=== PATIENT | male | born 1990 | race Caucasian/White ===

== ENCOUNTER 2018-09-18 12:15 | Emergency (ER) | payer MEDICAID ==
[~2018-09-18] VITALS: Ht 162.6 cm; Wt 60.0 kg
[2018-09-18] MEDS ORDERED: ZIPRASIDONE 20 MG INJ IM ONE ×2 (12:18→12:30)
[2018-09-18] MEDS ORDERED: PLEASE ENTER ALLERGIES MC SCH (12:30)
[2018-09-18] MEDS ORDERED: PLEASE ENTER HEIGHT AND WEIGHT MC SCH (12:30)
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
--- NOTE | 2018-09-18 12:48 | NUR ---
PT CALM NOW, STATES HE IS OUT OF HIS MEDS FOR A FEW DAYS AND HAD AN ARGUEMENT TODAY WITH WITH ROOMMATE THAT SET HIM OFF.
[2018-09-18] MEDS ORDERED: DIVA125T2 PO (12:50)
[2018-09-18] MEDS ORDERED: HYDR25CA PO (12:50)
--- NOTE | 2018-09-18 12:59 | NUR ---
MOVED TO 2 PT RESTRAINTS
[2018-09-18 13:05] LABS: ALBUMIN 4.3 g/dL (3.4-5.0); ANION GAP 14 mmol/L (5-15); BASOPHILS # (AUTO) 0.02 x10^3/uL (0-0.1); BASOPHILS % (AUTO) 0 % (0-1); CALCIUM 9.1 mg/dL (8.5-10.1); CHLORIDE 108 mmol/L (98-107); EOSINOPHILS # (AUTO) 0.08 x10^3/uL (0-0.4); EOSINOPHILS % (AUTO) 1 % (1-7); LYMPHOCYTES # (AUTO) 1.47 x10^3/uL (1-3.4); LYMPHOCYTES % (AUTO) 18 % (22-44); MD NO; MEAN CORPUSCULAR HEMOGLOBIN 28.7 pg (27.5-34.5); MEAN CORPUSCULAR HGB CONC 32.3 g/dL (33.2-36.2); MEAN CORPUSCULAR VOLUME 88.6 fL (81-97); MEAN PLATELET VOLUME 8.5 fL (7.4-10.4); MONOCYTES # (AUTO) 0.43 x10^3/uL (0.2-0.8); MONOCYTES % (AUTO) 5 % (2-9); NEUTROPHILS # (AUTO) 6.25 x10^3/uL (1.8-6.8); NEUTROPHILS % (AUTO) 76 % (42-75); PLATELET COUNT 283 x10^3/uL (130-400)
[2018-09-18 13:06] LABS: CREATININE 1.07 mg/dL (0.7-1.3)
[2018-09-18 13:09] LABS: ACETAMINOPHEN < 2 mcg/mL (10-30); SALICYLATE LEVEL < 1.7 mg/dL (2.8-20.0)
--- NOTE | 2018-09-18 13:27 | NUR ---
ALL RESTRAINTS RELEASED AT 1315 PT SLEEPING
[2018-09-18 13:28] VITALS: BP 98/66
--- NOTE | 2018-09-18 13:30 | NUR ---
REPORT FROM JUVENTINO HERRERA, PT SLEEPING IN [facility] WITH SITTER AT DOORWAY. URINAL PROVIDED AND SITTER INFORMED OF NEED FOR UDS.
--- NOTE | 2018-09-18 14:32 | NUR ---
PT SLEEPING IN [facility], EQUAL CHEST RISE AND FALL. SITTER AT DOORWAY.
--- NOTE | 2018-09-18 15:28 | NUR ---
PT SLEEPING IN [facility], EQUAL CHEST RISE AND FALL. SITTER AT DOORWAY.
[2018-09-18] MEDS ORDERED: LORazepam 1MG TABLET PO PRN (15:30)
[2018-09-18] MEDS ORDERED: ONDANSETRON ODT 4 MG PO PRN (15:30)
[2018-09-18] MEDS ORDERED: NICOTINE 21 MG/24 HR PATCH.TD24 TD SCH (15:30)
[2018-09-18] MEDS ORDERED: BENZTROPINE 1 MG TABLET PO PRN (15:30)
[2018-09-18] MEDS ORDERED: ACETAMINOPHEN 325 MG TABLET PO PRN (15:30)
[2018-09-18] MEDS ORDERED: ZIPRASIDONE 20MG CAPSULE PO PRN (15:30)
[2018-09-18] MEDS ORDERED: LORazepam 2 MG/ML, 1ML IM PRN (15:30)
[2018-09-18] MEDS ORDERED: ZIPRASIDONE 20 MG INJ IM PRN (15:30)
[2018-09-18 16:23] LABS: AMPHETAMINE SCREEN, URINE Negative (Negative); BARBITURATE SCREEN, URINE Negative (Negative); BENZODIAZEPINE SCREEN, URINE Negative (Negative); CANNABINOID SCREEN, URINE Positive (Negative); COCAINE SCREEN, URINE Negative (Negative); METHADONE SCREEN, URINE Negative (Negative); OPIATE SCREEN, URINE Negative (Negative)
--- NOTE | 2018-09-18 16:36 | NUR ---
PT SLEEPING IN [facility], EQUAL CHEST RISE AND FALL. SITTER AT DOORWAY.
--- NOTE | 2018-09-18 17:32 | NUR ---
PT REQUESTING TO CALL MOTHER, WALKED TO PHONE WITH SAMEER
--- NOTE | 2018-09-18 18:33 | NUR ---
PT GIVEN DINNER TRAY. PT UPDATED ON POC TO GO TO 2N
--- NOTE | 2018-09-18 18:54 | NUR ---
THROUGHPUT RN: PACKET FAXED TO [facility], [facility], AND [facility].
--- NOTE | 2018-09-18 19:14 | NUR ---
REPORT TO BREAK JAVIER BARNARD
--- NOTE | 2018-09-18 19:52 | NUR ---
REPORT GIVEN TO truedash @ [facility]
--- NOTE | 2018-09-18 20:16 | NUR ---
PT SLEEPING IN [facility], EQUAL CHEST RISE AND FALL, SITTER AT DOORWAY
--- NOTE | 2018-09-18 20:44 | NUR ---
TP RN: EDUIN JASSO TO ACCEPT PT, DR. BALDERAS ACCEPTING PHYSICIAN
--- NOTE | 2018-09-18 21:18 | NUR ---
PT SLEEPING IN [facility], EQUAL CHEST RISE AND FALL, [facility] HAS ACCEPTED PT, AWAITING TRANSPORT
--- NOTE | 2018-09-18 22:10 | NUR ---
PT SLEEPING IN [facility] WITH SITTER AT BEDSIDE. [facility] TRANSPORT SCHEDULED FOR 2229
[2018-09-19] MEDS ORDERED: HYDROXYZINE PAMOATE 25MG CAP PO SCH (09:00)
[2018-09-19] MEDS ORDERED: DIVALPROEX 125 MG TABLET.DR PO SCH (09:00)
== END 2018-09-18 22:43 ==
LOC: ED 15:19 → EDIP 15:20 → UNDOADMIN 15:20 → ED 16:45
DX: R45.851 Suicidal ideations (principal); F23 Brief psychotic disorder; F22 Delusional disorders; Z72.9 Problem related to lifestyle, unspecified
CPT/HCPCS: 36415; 80048; 80307; 82040; 85025; 96372; 99285; J3486